=== PATIENT | female | born 1970 | race Caucasian/White ===

== ENCOUNTER 2022-05-22 12:59 | Emergency (ER) | payer SELFPAY ==
[2022-05-22 13:05] VITALS: TEMP 98.6
[2022-05-22 13:45] LABS: INR 1.5 (<1.2); Partial Thromboplastin Time 30.8 sec (22.0-30.0); Prothrombin Time 15.2 sec (9.0-12.0)
[2022-05-22 13:47] LABS: ALT 51 U/L (4-34); African American GFR (CKD) >90 (>60 ml/min/1.73 sqM); Anion Gap 6 mmol/L; Blood Urea Nitrogen 5 mg/dL (7-17); Calcium 7.5 mg/dL (8.4-10.2); Carbon Dioxide 25 mmol/L (22-30); Chloride 104 mmol/L (98-107); Glucose 141 mg/dL (74-99); Non-African American GFR(CKD) >90 (>60 ml/min/1.73 sqM); Sodium 135 mmol/L (137-145); Total Bilirubin 3.4 mg/dL (0.2-1.3)
[2022-05-22 13:54] LABS: Albumin 2.9 g/dL (3.5-5.0); Potassium 4.8 mmol/L (3.5-5.1); Total Protein 6.5 g/dL (6.3-8.2)
[2022-05-22 13:55] LABS: AST 114 U/L (14-36); Alkaline Phosphatase 357 U/L (38-126)
--- NOTE | 2022-05-22 14:32 | XR ---
EXAMINATION TYPE: XR chest 2V DATE OF EXAM: 05/22/2022 COMPARISON: NONE HISTORY: Shortness of breath and body swelling TECHNIQUE: Frontal and lateral views of the chest are obtained. FINDINGS: Central vascularity and interstitium are prominent. No evident pneumothorax or pleural eff usion. Heart is at the upper limit of normal for size, patient is rotated IMPRESSION: Findings may represent pulmonary venous hypertension and interstitial edema, interstitia l pneumonitis, follow-up is recommended
--- NOTE | 2022-05-22 15:16 | ED ---
General Adult HPI - General Chief complaint: Shortness of Breath Stated complaint: SOB,body swelling Time Seen by Provider: 05/22/22 15:15 Source: patient, RN notes reviewed, old records reviewed Mode of arrival: ambulatory Limitations: no limitations - History of Present Illness Initial comments: Patient is a 51-year-old female who presents emergency Department with past medical history remarkable for diabetes who does not see any healthcare provider s presents emergency Department with shortness of breath. States it has been a progressive process for multiple weeks. Has noticed worsening lower extremity edema, now has noticed also abdominal swelling. Has noticed difficulty with breathing with lying flat. Endorses orthopnea, occasional PND. Denies any chest pain, abdominal pain, nausea, vomiting. Denies any headaches. This is been a progressive process, has been worsening which is why she presents today for further evaluation. Denies any known history of cardiac disease in herself. Denies any history of stents. Denies any fevers but does endorse a nonproductive cough. Denies any fevers or chills. Presents for further evaluation at this time. I evaluated the patient when she is placed in the emergency department room. Patient does endorse worsening exertional shortness of breath over this period of time. - Related Data Previous Rx's Medication Instructions Recorded Furosemide [Lasix] 20 mg PO DAILY 20 Days #20 tablet 05/22/22 Allergies Allergy/AdvReac Type Severity Reaction Status Date / Time No Known Allergies Allergy Verified 05/22/22 17:16 Review of Systems ROS Statement: Those systems with pertinent positive or pertinent negative responses have been documented in the HPI. Review of Systems: CONST: Denies fever EYES: Denies blurry vision ENT: Denies nasal congestion C/V: Denies Chest pain RESP: Endorses shortness of breath GI: Denies abdominal pain : Denies dysuria SKIN: Denies rash. MSK: Denies joint pain. NEURO: Denies headache ROS Other: All systems not noted in ROS Statement are negative. Past Medical History Past Medical History: Diabetes Mellitus History of Any Multi-Drug Resistant Organisms: None Reported Past Surgical History: Orthopedic Surgery Past Psychological History: No Psychological Hx Reported Smoking Status: Former smoker Past Alcohol Use History: Occasional Past Drug Use History: None Reported General Exam - General Exam Comments Initial Comments: General: Appears in no acute distress. HEAD: Normal with no signs of head trauma. EYES: PERRLA, EOMI, conjunctiva normal, no discharge. ENT: Hearing grossly intact, normal oropharynx. RESPIRATORY: Clear breath sounds bilaterally. No wheezes, rales, or rhonchi. No respiratory distress. No hypoxia at rest. C/V: Regular rate and rhythm. S1 and S2 auscultated, patient has 2+ pitting edema in bilateral lower extremities that is symmetrical of the level of the knees., peripheral pulses 2+ and intact throughout ABD: Abd is soft, nontender, nondistended EXT: Normal range of motion, no obvious deformity SKIN: No rashes or lesions observed on exposed skin. NEURO: Alert and oriented 4. No focal deficits. Limitations: no limitations Course Vital Signs 05/22/22 05/22/22 05/22/22 13:01 15:40 17:29 Temperature 98.6 F Pulse Rate 87 66 Respiratory 16 22 18 Rate Blood Pressure 144/80 133/73 O2 Sat by Pulse 98 98 Oximetry Medical Decision Making - Medical Decision Making Based on the patient's presentation and physical exam, I'm concerned for cardiopulmonary etiology for her current symptoms. We will obtain cardiac labs, EKG, chest x-ray. Vital signs within acceptable limits. Patient was in agreement this planl. Concerns include congestive heart failure, dependent edema. EKG shows no signs of acute ischemia. Chest x-ray reveals pulmonary venous hypertension/interstitial edema. Laboratory studies are remarkable for an undetectable troponin.BNP is within normal limits for the patient's age. Labora tory studies are remarkable for a normal adjusted calcium. LFTs are slightly elevated. Bilirubin and alk phos are slightly elevated. Patient's has hypoalbuminemia. Coags are slightly elevated. Remainder the labs are unremarkable. I discussed results with the patient. Labs seem to represent cirrhosis at this time. I did recommend we obtain a CT abdomen and pelvis at this time. She was in agreement with this plan. CT revealed small livers suggestive of cirrhosis. Moderate abdominal ascitic fluid. Anasarca present. I discussed with her current symptoms are likely secondary to cirrhosis. This is a chronic process at this time. Patient has no primary care however spoke with social workers here to work on getting insurance as well as follow-up. I will provide her with a dose of Lasix prior to discharge as well as an oral prescription for Lasix. Recommend that she follow up with outpatient PCP in her we'll provide her with contact information for 1. She was in agreement this plan. Vital signs remained within acceptable limits. No hypoxia. Labs while remarkable for findings of cirrhosis are noncritical. She is feeling otherwise well. She was in agreement this plan. Strict return precautions were discussed.Patient does not abuse alcohol per her, but we did discuss ceasing all alcohol use. We discussed that symptoms are likely secondary to dependent edema accumulation from hypoalbuminemia from liver cirrhosis. Normal BMP suggests no CHF contribution. I will provide the patient with a prescription for Lasix. I instructed the patient to follow up with their PCP in the next 1-3 days. I provided contact information for follow up with PCP. I explained that the patient should return to the emergency department if they experience any worsening symptoms. Strict return precautions were discussed with the patient. The patient expressed understanding of these instructions. I answered all questions that the patient had. The patient was discharged home in good condition with their prescriptions and follow up information. - Lab Data Result diagrams: 05/22/22 14:03 05/22/22 13:14 Lab Results 05/22/22 05/22/22 05/22/22 Range/Units 13:14 13:14 13:14 WBC (3.8-10.6) k/uL RBC (3.80-5.40) m/uL Hgb (11.4-16.0) gm/dL Hct (34.0-46.0) % MCV (80.0-100.0) fL MCH (25.0-35.0) pg MCHC (31.0-37.0) g/dL RDW (11.5-15.5) % Plt Count (150-450) k/uL MPV Neutrophils % (Manual) % Lymphocytes % (Manual) % Monocytes % (Manual) % Eosinophils % (Manual) % Basophils % (Manual) % Neutrophils # (Manual) (1.3-7.7) k/uL Lymphocytes # (Manual) (1.0-4.8) k/uL Monocytes # (Manual) (0-1.0) k/uL Eosinophils # (Manual) (0-0.7) k/uL Basophils # (Manual) (0-0.2) k/uL Nucleated RBCs (0-0) /100 WBC Manual Slide Review Macrocytosis Target Cells PT 15.2 H (9.0-12.0) sec INR 1.5 H (<1.2) APTT 30.8 H (22.0-30.0) sec Sodium 135 L (137-145) mmol/L Potassium 4.8 (3.5-5.1) mmol/L Chloride 104 (98-107) mmol/L Carbon Dioxide 25 (22-30) mmol/L Anion Gap 6 mmol/L BUN 5 L (7-17) mg/dL Creatinine 0.37 L (0.52-1.04) mg/dL Est GFR (CKD-EPI)AfAm >90 (>60 ml/min/1.73 sqM) Est GFR (CKD-EPI)NonAf >90 (>60 ml/min/1.73 sqM) Glucose 141 H (74-99) mg/dL Plasma Lactic Acid Rubin (0.7-2.0) mmol/L Calcium 7.5 L (8.4-10.2) mg/dL Total Bilirubin 3.4 H (0.2-1.3) mg/dL AST 114 H (14-36) U/L ALT 51 H (4-34) U/L Alkaline Phosphatase 357 H (38-126) U/L Troponin I <0.012 (0.000-0.034) ng/mL NT-Pro-B Natriuret Pep pg/mL Total Protein 6.5 (6.3-8.2) g/dL Albumin 2.9 L (3.5-5.0) g/dL Amylase (30-110) U/L Lipase (23-300) U/L Urine Color Urine Appearance (Clear) Urine pH (5.0-8.0) Ur Specific [place] (1.001-1.035) Urine Protein (Negative) Urine Glucose (UA) (Negative) Urine Ketones (Negative) Urine Blood (Negative) Urine Nitrite (Negative) Urine Bilirubin (Negative) Urine Urobilinogen (<2.0) mg/dL Ur Leukocyte Esterase (Negative) 05/22/22 05/22/22 05/22/22 Range/Units 13:15 14:03 15:20 WBC 3.7 L (3.8-10.6) k/uL RBC 3.94 (3.80-5.40) m/uL Hgb 14.0 (11.4-16.0) gm/dL Hct 41.9 (34.0-46.0) % MCV 106.4 H (80.0-100.0) fL MCH 35.6 H (25.0-35.0) pg MCHC 33.5 (31.0-37.0) g/dL RDW 15.0 (11.5-15.5) % Plt Count 45 L (150-450) k/uL MPV 11.9 Neutrophils % (Manual) 50 % Lymphocytes % (Manual) 45 % Monocytes % (Manual) 2 % Eosinophils % (Manual) 2 % Basophils % (Manual) 1 % Neutrophils # (Manual) 1.85 (1.3-7.7) k/uL Lymphocytes # (Manual) 1.67 (1.0-4.8) k/uL Monocytes # (Manual) 0.07 (0-1.0) k/uL Eosinophils # (Manual) 0.07 (0-0.7) k/uL Basophils # (Manual) 0.04 (0-0.2) k/uL Nucleated RBCs 0 (0-0) /100 WBC Manual Slide Review Performed Macrocytosis Moderate Target Cells Present PT (9.0-12.0) sec INR (<1.2) APTT (22.0-30.0) sec Sodium (137-145) mmol/L Potassium (3.5-5.1) mmol/L Chloride (98-107) mmol/L Carbon Dioxide (22-30) mmol/L Anion Gap mmol/L BUN (7-17) mg/dL Creatinine (0.52-1.04) mg/dL Est GFR (CKD-EPI)AfAm (>60 ml/min/1.73 sqM) Est GFR (CKD-EPI)NonAf (>60 ml/min/1.73 sqM) Glucose (74-99) mg/dL Plasma Lactic Acid Rubin 1.6 (0.7-2.0) mmol/L Calcium (8.4-10.2) mg/dL Total Bilirubin (0.2-1.3) mg/dL AST (14-36) U/L ALT (4-34) U/L Alkaline Phosphatase (38-126) U/L Troponin I (0.000-0.034) ng/mL NT-Pro-B Natriuret Pep 115 pg/mL Total Protein (6.3-8.2) g/dL Albumin (3.5-5.0) g/dL Amylase (30-110) U/L Lipase (23-300) U/L Urine Color Urine Appearance (Clear) Urine pH (5.0-8.0) Ur Specific [place] (1.001-1.035) Urine Protein (Negative) Urine Glucose (UA) (Negative) Urine Ketones (Negative) Urine Blood (Negative) Urine Nitrite (Negative) Urine Bilirubin (Negative) Urine Urobilinogen (<2.0) mg/dL Ur Leukocyte Esterase (Negative) 05/22/22 05/22/22 Range/Units 15:39 16:22 WBC (3.8-10.6) k/uL RBC (3.80-5.40) m/uL Hgb (11.4-16.0) gm/dL Hct (34.0-46.0) % MCV (80.0-100.0) fL MCH (25.0-35.0) pg MCHC (31.0-37.0) g/dL RDW (11.5-15.5) % Plt Count (150-450) k/uL MPV Neutrophils % (Manual) % Lymphocytes % (Manual) % Monocytes % (Manual) % Eosinophils % (Manual) % Basophils % (Manual) % Neutrophils # (Manual) (1.3-7.7) k/uL Lymphocytes # (Manual) (1.0-4.8) k/uL Monocytes # (Manual) (0-1.0) k/uL Eosinophils # (Manual) (0-0.7) k/uL Basophils # (Manual) (0-0.2) k/uL Nucleated RBCs (0-0) /100 WBC Manual Slide Review Macrocytosis Target Cells PT (9.0-12.0) sec INR (<1.2) APTT (22.0-30.0) sec Sodium (137-145) mmol/L Potassium (3.5-5.1) mmol/L Chloride (98-107) mmol/L Carbon Dioxide (22-30) mmol/L Anion Gap mmol/L BUN (7-17) mg/dL Creatinine (0.52-1.04) mg/dL Est GFR (CKD-EPI)AfAm (>60 ml/min/1.73 sqM) Est GFR (CKD-EPI)NonAf (>60 ml/min/1.73 sqM) Glucose (74-99) mg/dL Plasma Lactic Acid Rubin (0.7-2.0) mmol/L Calcium (8.4-10.2) mg/dL Total Bilirubin (0.2-1.3) mg/dL AST (14-36) U/L ALT (4-34) U/L Alkaline Phosphatase (38-126) U/L Troponin I (0.000-0.034) ng/mL NT-Pro-B Natriuret Pep pg/mL Total Protein (6.3-8.2) g/dL Albumin (3.5-5.0) g/dL Amylase 64 (30-110) U/L Lipase 169 (23-300) U/L Urine Color Yellow Urine Appearance Clear (Clear) Urine pH 7.0 (5.0-8.0) Ur Specific [place] 1.018 (1.001-1.035) Urine Protein Negative (Negative) Urine Glucose (UA) Negative (Negative) Urine Ketones Negative (Negative) Urine Blood Negative (Negative) Urine Nitrite Negative (Negative) Urine Bilirubin Negative (Negative) Urine Urobilinogen 3.0 (<2.0) mg/dL Ur Leukocyte Esterase Negative (Negative) - EKG Data -: EKG Interpreted by Me EKG Comments: 12-lead Electrocardiogram Interpretation Note EKG was reviewed and interpreted by myself. 12-lead ECG performed at 1307 is interpreted by me as revealing normal sinus rhythm at a rate of 73 beats per minute. [place] is normal. CA interval is 119 ms, QRS duration is 92 ms, QTc is 447 ms. Isolated T-wave inversion in lead III.. There were no other ST or T wave abnormalities to suggest myocardial ischemia or injury. R wave progression across the precordium was satisfactory. By my interpretation this EKG is non-diagnostic for acute ischemia. No prior EKG for comparison. Disposition Clinical Impression: Dependent edema, Cirrhosis, Hypoalbuminemia Disposition: HOME SELF-CARE Condition: Good Instructions (If sedation given, give patient instructions): Cirrhosis (ED), Edema (ED) Prescriptions: Furosemide [Lasix] 20 mg PO DAILY 20 Days #20 tablet Is patient prescribed a controlled substance at d/c from ED?: No Referrals: None,Stated [Primary Care Provider] - 1-2 days Eliezer Ling [STAFF PHYSICIAN] - 1-2 days Time of Disposition: 17:20
[2022-05-22 15:33] LABS: HCT 41.9 % (34.0-46.0); MCH 35.6 pg (25.0-35.0); MCHC 33.5 g/dL (31.0-37.0); MCV 106.4 fL (80.0-100.0); Macrocytosis Moderate; Mean Platelet Volume 11.9; RBC 3.94 m/uL (3.80-5.40); WBC 3.7 k/uL (3.8-10.6)
[2022-05-22 15:34] LABS: Platelet Count 45 k/uL (150-450)
[2022-05-22 15:38] LABS: Basophils # (M) 0.04 k/uL (0-0.2); Eosinophils # (M) 0.07 k/uL (0-0.7); Lymphocytes # (M) 1.67 k/uL (1.0-4.8); Monocytes # (M) 0.07 k/uL (0-1.0); Neutrophils # (M) 1.85 k/uL (1.3-7.7); Neutrophils % (M) 50 %; Nucleated Red Blood Cells 0 /100 WBC (0-0); Total Cells Counted 100
[2022-05-22 15:39] LABS: Target Cells Present
[2022-05-22 16:18] LABS: Appearance,Urine Clear (Clear); Bilirubin,Urine Negative (Negative); Blood,Urine Negative (Negative); Color,Urine Yellow; Glucose,Urine (UA) Negative (Negative); Ketones,Urine Negative (Negative); Leukocyte Esterase,Urine Negative (Negative); Nitrite,Urine Negative (Negative); Protein,Urine Negative (Negative); Specific Gravity,Urine 1.018 (1.001-1.035)
[2022-05-22 16:31] LABS: Amylase 64 U/L (30-110); Lipase 169 U/L (23-300)
--- NOTE | 2022-05-22 17:05 | CT ---
EXAMINATION TYPE: CT abdomen pelvis w con DATE OF EXAM: 05/22/2022 COMPARISON: None HISTORY: abd pain CT DLP: 3093.9 mGycm Automated exposure control for dose reduction was used. CONTRAST: Performed with IV Contrast, patient injected with 100 mL of Isovue 300. Images obtained from the diaphragm to the floor the pelvis with the IV contrast. Lung bases are clear of consolidation. No pleural effusion. Heart size is normal. No pericardial effu yuliana. There is diffuse subcutaneous edema around the abdomen. Liver is somewhat small and could relate to c irrhosis. Liver measures 13 cm in length. There is abdominal ascites. Spleen measures 13.[address] omach is intact. No pancreatic mass. Gallbladder is dilated and measures 5.9 cm in diameter. There is no adrenal mass. Kidneys show satisfactory contrast opacification. No hydronephrosis. Bladde r distends smoothly. Uterus is anteverted. No pelvic mass. The lumbar vertebrae have normal alignment. No compression fracture. Posterior elements are intact. T he bony pelvis is intact. The hip joints are intact. Sacroiliac joints appear normal. There is T11-12 mild spur formation. There is no evidence of a bowel obstruction. No free air. No mesenteric edema. IMPRESSION: Small liver suggestive of cirrhosis. Moderate abdominal ascites fluid. Subcutaneous edema around the abdomen could relate to anasarca. Borderline splenomegaly.
[2022-05-22] MEDS ORDERED: FUROSEMIDE 10 MG/ML 4 ML VIAL IV STA (17:15)
[2022-05-22 17:29] VITALS: BP 133/73; PULSE 66; RESP 18
== END 2022-05-22 18:28 | disposition home or self-care (01) ==
LOC: EC 12:59
DX: R60.9 Edema, unspecified (principal); K74.60 Unspecified cirrhosis of liver; E88.09 Other disorders of plasma-protein metabolism, not elsewhere classified; E11.9 Type 2 diabetes mellitus without complications; Z87.891 Personal history of nicotine dependence
CPT/HCPCS: 36415; 93005; 83880; 80053; 82150; 83605; 83690; 84484; 85025; 85610; 85730; 81003; 71046; 74177; 99285; 96374; J1940

== ENCOUNTER 2022-07-02 11:09 | Emergency (ER) | payer BC ==
[2022-07-02 12:05] VITALS: RESP 16; TEMP 98
--- NOTE | 2022-07-02 12:25 | XR ---
EXAMINATION TYPE: XR chest 2V DATE OF EXAM: 07/02/2022 COMPARISON: 05/22/2022 HISTORY: sob cough TECHNIQUE: Frontal and lateral views of the chest are obtained. FINDINGS: Mild increased density right infrahilar region could reflect developing infiltrate. Correlate clinica lly and consider progress studies. No evidence for pneumothorax. No pleural effusion. The cardiac silhouette size is within normal limits. The osseous structures are grossly intact. IMPRESSION: 1. Mild increased density right infrahilar region could reflect developing infiltrate. Correlate cli nically and consider progress studies.
--- NOTE | 2022-07-02 12:28 | XR ---
EXAMINATION TYPE: XR KUB DATE OF EXAM: 07/02/2022 COMPARISON: NONE HISTORY: Pain TECHNIQUE: One view abdominal series FINDINGS: The osseous structures are intact. The bowel gas pattern is nonspecific. Lung bases are clear. IMPRESSION: 1. Nonspecific abdomen.
[2022-07-02 13:23] LABS: Appearance,Urine Turbid (Clear); Bilirubin,Urine Negative (Negative); Blood,Urine Trace (Negative); Color,Urine Yellow; Glucose,Urine (UA) Trace (Negative); INR 1.6 (<1.2); Ketones,Urine Trace (Negative); Leukocyte Esterase,Urine Large (Negative); Mucus,Urine Moderate /hpf; Nitrite,Urine Negative (Negative); PH, Urine 6.5 (5.0-8.0); Partial Thromboplastin Time 29.8 sec (22.0-30.0); Protein,Urine 1+ (Negative); Prothrombin Time 15.5 sec (9.0-12.0); RBC,Urine 21 /hpf (0-5); Specific Gravity,Urine 1.022 (1.001-1.035); Squamous Epithelial Cell,Urine 79 /hpf (0-4); WBC,Urine 36 /hpf (0-5)
[2022-07-02 13:24] LABS: ALT 53 U/L (4-34); AST 109 U/L (14-36); African American GFR (CKD) >90 (>60 ml/min/1.73 sqM); Albumin 2.7 g/dL (3.5-5.0); Alkaline Phosphatase 362 U/L (38-126); Amylase 56 U/L (30-110); Anion Gap 2 mmol/L; Blood Urea Nitrogen 4 mg/dL (7-17); Calcium 7.5 mg/dL (8.4-10.2); Carbon Dioxide 26 mmol/L (22-30); Chloride 108 mmol/L (98-107); Glucose 168 mg/dL (74-99); Lipase 186 U/L (23-300); Non-African American GFR(CKD) >90 (>60 ml/min/1.73 sqM); Sodium 136 mmol/L (137-145); Total Bilirubin 3.4 mg/dL (0.2-1.3); Total Protein 6.5 g/dL (6.3-8.2)
[2022-07-02 13:29] LABS: Basophils % (A) 1 %; Eosinophils # (A) 0.1 k/uL (0-0.7); Eosinophils % (A) 3 %; HCT 43.2 % (34.0-46.0); HGB 14.3 gm/dL (11.4-16.0); Lymphocytes % (A) 23 %; MCH 34.8 pg (25.0-35.0); MCV 105.4 fL (80.0-100.0); Macrocytosis Moderate; Mean Platelet Volume 11.3; Monocytes # (A) 0.5 k/uL (0-1.0); Monocytes % (A) 11 %; Neutrophils # (A) 2.5 k/uL (1.3-7.7); Neutrophils % (A) 59 %; RDW 15.4 % (11.5-15.5); WBC 4.3 k/uL (3.8-10.6)
[2022-07-02 13:42] LABS: Platelet Count 41 k/uL (150-450)
[2022-07-02] MEDS ORDERED: FUROSEMIDE 10 MG/ML 4 ML VIAL IV STA (14:53)
--- NOTE | 2022-07-02 16:18 | ED ---
General Adult HPI - General Chief complaint: Abdominal Pain Stated complaint: SOB Time Seen by Provider: 07/02/22 14:37 Source: patient, RN notes reviewed Mode of arrival: ambulatory Limitations: no limitations - History of Present Illness Initial comments: Patient is a 52-year-old female presenting to the emergency room at the direction of her coworkers for severe dyspnea while at work. She also reports that her spouse advised her that she had one episode of apnea during the night where she stopped breathing. She was able to easily arouse her and she tested improving again. She reports severe orthopnea last 24 hours. She is complaining of worsening lower extremity edema, shortness of breath secondary to abdominal pressure, abdominal pain and increase in abdominal size. On 05/22/2022 month ago blood work was completed along CT of the abdomen and pelvis completed during workup on 05/14/2022 report reviewed showing small liver suggestive of cirrhosis. Moderate abdominal ascites fluid. Subcutaneous edema around the abdomen along with borderline splenomegaly. She reports that her ascites has worsened since that time though she did complete the door course of Lasix that was prescribed on discharge which is 20 mg daily for the course of 10 days on flexion she was unable to establish with local GI or local primary care provider for further evaluation and treatment. She has a past medical history significant for diabetes. She denies any known hepatic failure previous to her most recent workup and denies any alcohol abuse or known hepatitis exposure. - Related Data Home Medications Medication Instructions Recorded Confirmed No Known Home Medications 07/02/22 07/02/22 Allergies Allergy/AdvReac Type Severity Reaction Status Date / Time No Known Allergies Allergy Verified 07/02/22 15:57 Review of Systems ROS Statement: Those systems with pertinent positive or pertinent negative responses have been documented in the HPI. ROS Other: All systems not noted in ROS Statement are negative. Past Medical History Past Medical History: Diabetes Mellitus, Liver Disease History of Any Multi-Drug Resistant Organisms: None Reported Past Surgical History: Orthopedic Surgery Past Psychological History: No Psychological Hx Reported Smoking Status: Former smoker Past Alcohol Use History: Occasional Past Drug Use History: None Reported General Exam Limitations: no limitations General appearance: alert, in no apparent distress Head exam: Present: atraumatic, normocephalic, normal inspection Eye exam: Present: normal appearance, PERRL, EOMI. Absent: scleral icterus, conjunctival injection, periorbital swelling ENT exam: Present: normal exam, mucous membranes moist Neck exam: Present: normal inspection, full ROM Respiratory exam: Present: decreased breath sounds (Bibasilar). Absent: respiratory distress, wheezes, rales, rhonchi, stridor Cardiovascular Exam: Present: regular rate, normal rhythm, normal heart sounds. Absent: systolic murmur, diastolic murmur, rubs, gallop, clicks GI/Abdominal exam: Present: distended, tenderness, normal bowel sounds Rectal exam: Present: deferred Extremities exam: Present: pedal edema (Bilateral lower extremity +2-3) Back exam: Present: normal inspection Neurological exam: Present: alert, oriented X3, CN II-XII intact Psychiatric exam: Present: normal affect, normal mood Skin exam: Present: warm, dry, intact, normal color. Absent: rash Course Vital Signs 07/02/22 07/02/22 12:01 19:19 Temperature 98 F Pulse Rate 81 65 Respiratory 16 16 Rate Blood Pressure 176/82 146/49 O2 Sat by Pulse 98 100 Oximetry Medical Decision Making - Medical Decision Making 52-year-old female presenting to the emergency room with worsening ascites and shortness of breath along with an episode of apnea last night secondary to orthopnea and abdominal pressure. Workup approximately one month ago blood work completed by triage and essentially unchanged. CT of the abdomen and pelvis completed during workup on 05/14/2022 report reviewed showing small liver suggestive of cirrhosis. Moderate abdominal ascites fluid. Subcutaneous edema around the abdomen along with borderline splenomegaly. KUB and chest x-ray ordered while patient was triaged. KUB image intervertebral me showing nonspecific bowel gas pattern with clear lung bases. Chest x-ray image interpreted by me shows increased density right infrahilar area possible developing infiltrate. High risk for increased pulmonary edema secondary to volume overload from hepatic failure. No indication for further diagnostic imaging at this time. Will add acute hepatitis panel to blood work and give 40 mg of IV Lasix. Due to worsening of volume overload symptoms with lack of availability of GI in the region along with inability to follow up with primary care provider locally recommend transf er to another facility for further evaluation of treatment of ascites and sudden onset of hepatic failure approximately 2 months ago. Patient diuresed well with IV Lasix. Improvement and shortness of breath slightly but dyspnea persist along with abdominal pain. Attempted to transfer patient to [facility], no availability for transfer. Spoke with Dr. Kurt Toth [place] who is accepting of ER To ER transfer for further evaluation and treatment by medicine and GI services. Discussed plan with patient and family at bedside. Will arrange transfer via ambulance to follow-up [place].. Case discussed with Dr. Mercado. - Lab Data Result diagrams: 07/02/22 12:30 07/02/22 12:30 Lab Results 07/02/22 07/02/22 07/02/22 Range/Units 12:30 12:30 12:30 WBC 4.3 (3.8-10.6) k/uL RBC 4.10 (3.80-5.40) m/uL Hgb 14.3 (11.4-16.0) gm/dL Hct 43.2 (34.0-46.0) % MCV 105.4 H (80.0-100.0) fL MCH 34.8 (25.0-35.0) pg MCHC 33.0 (31.0-37.0) g/dL RDW 15.4 (11.5-15.5) % Plt Count 41 L (150-450) k/uL MPV 11.3 Neutrophils % 59 % Lymphocytes % 23 % Monocytes % 11 % Eosinophils % 3 % Basophils % 1 % Neutrophils # 2.5 (1.3-7.7) k/uL Lymphocytes # 1.0 (1.0-4.8) k/uL Monocytes # 0.5 (0-1.0) k/uL Eosinophils # 0.1 (0-0.7) k/uL Basophils # 0.0 (0-0.2) k/uL Macrocytosis Moderate PT 15.5 H (9.0-12.0) sec INR 1.6 H (<1.2) APTT 29.8 (22.0-30.0) sec Sodium (137-145) mmol/L Potassium (3.5-5.1) mmol/L Chloride (98-107) mmol/L Carbon Dioxide (22-30) mmol/L Anion Gap mmol/L BUN (7-17) mg/dL Creatinine (0.52-1.04) mg/dL Est GFR (CKD-EPI)AfAm (>60 ml/min/1.73 sqM) Est GFR (CKD-EPI)NonAf (>60 ml/min/1.73 sqM) Glucose (74-99) mg/dL Calcium (8.4-10.2) mg/dL Total Bilirubin (0.2-1.3) mg/dL AST (14-36) U/L ALT (4-34) U/L Alkaline Phosphatase (38-126) U/L Troponin I (0.000-0.034) ng/mL NT-Pro-B Natriuret Pep pg/mL Total Protein (6.3-8.2) g/dL Albumin (3.5-5.0) g/dL Amylase (30-110) U/L Lipase (23-300) U/L Urine Color Yellow Urine Appearance Turbid H (Clear) Urine pH 6.5 (5.0-8.0) Ur Specific Pruden 1.022 (1.001-1.035) Urine Protein 1+ H (Negative) Urine Glucose (UA) Trace H (Negative) Urine Ketones Trace H (Negative) Urine Blood Trace H (Negative) Urine Nitrite Negative (Negative) Urine Bilirubin Negative (Negative) Urine Urobilinogen 4.0 (<2.0) mg/dL Ur Leukocyte Esterase Large H (Negative) Urine RBC 21 H (0-5) /hpf Urine WBC 36 H (0-5) /hpf Ur Squamous Epith Cells 79 H (0-4) /hpf Urine Mucus Moderate H (None) /hpf Urine HCG, Qual (Not Detectd) 07/02/22 07/02/22 07/02/22 Range/Units 12:30 12:30 12:30 WBC (3.8-10.6) k/uL RBC (3.80-5.40) m/uL Hgb (11.4-16.0) gm/dL Hct (34.0-46.0) % MCV (80.0-100.0) fL MCH (25.0-35.0) pg MCHC (31.0-37.0) g/dL RDW (11.5-15.5) % Plt Count (150-450) k/uL MPV Neutrophils % % Lymphocytes % % Monocytes % % Eosinophils % % Basophils % % Neutrophils # (1.3-7.7) k/uL Lymphocytes # (1.0-4.8) k/uL Monocytes # (0-1.0) k/uL Eosinophils # (0-0.7) k/uL Basophils # (0-0.2) k/uL Macrocytosis PT (9.0-12.0) sec INR (<1.2) APTT (22.0-30.0) sec Sodium 136 L (137-145) mmol/L Potassium 4.0 (3.5-5.1) mmol/L Chloride 108 H (98-107) mmol/L Carbon Dioxide 26 (22-30) mmol/L Anion Gap 2 mmol/L BUN 4 L (7-17) mg/dL Creatinine 0.42 L (0.52-1.04) mg/dL Est GFR (CKD-EPI)AfAm >90 (>60 ml/min/1.73 sqM) Est GFR (CKD-EPI)NonAf >90 (>60 ml/min/1.73 sqM) Glucose 168 H (74-99) mg/dL Calcium 7.5 L (8.4-10.2) mg/dL Total Bilirubin 3.4 H (0.2-1.3) mg/dL AST 109 H (14-36) U/L ALT 53 H (4-34) U/L Alkaline Phosphatase 362 H (38-126) U/L Troponin I 0.016 (0.000-0.034) ng/mL NT-Pro-B Natriuret Pep pg/mL Total Protein 6.5 (6.3-8.2) g/dL Albumin 2.7 L (3.5-5.0) g/dL Amylase 56 (30-110) U/L Lipase 186 (23-300) U/L Urine Color Urine Appearance (Clear) Urine pH (5.0-8.0) Ur Specific Pruden (1.001-1.035) Urine Protein (Negative) Urine Glucose (UA) (Negative) Urine Ketones (Negative) Urine Blood (Negative) Urine Nitrite (Negative) Urine Bilirubin (Negative) Urine Urobilinogen (<2.0) mg/dL Ur Leukocyte Esterase (Negative) Urine RBC (0-5) /hpf Urine WBC (0-5) /hpf Ur Squamous Epith Cells (0-4) /hpf Urine Mucus (None) /hpf Urine HCG, Qual Not Detected (Not Detectd) 07/02/22 Range/Units 12:30 WBC (3.8-10.6) k/uL RBC (3.80-5.40) m/uL Hgb (11.4-16.0) gm/dL Hct (34.0-46.0) % MCV (80.0-100.0) fL MCH (25.0-35.0) pg MCHC (31.0-37.0) g/dL RDW (11.5-15.5) % Plt Count (150-450) k/uL MPV Neutrophils % % Lymphocytes % % Monocytes % % Eosinophils % % Basophils % % Neutrophils # (1.3-7.7) k/uL Lymphocytes # (1.0-4.8) k/uL Monocytes # (0-1.0) k/uL Eosinophils # (0-0.7) k/uL Basophils # (0-0.2) k/uL Macrocytosis PT (9.0-12.0) sec INR (<1.2) APTT (22.0-30.0) sec Sodium (137-145) mmol/L Potassium (3.5-5.1) mmol/L Chloride (98-107) mmol/L Carbon Dioxide (22-30) mmol/L Anion Gap mmol/L BUN (7-17) mg/dL Creatinine (0.52-1.04) mg/dL Est GFR (CKD-EPI)AfAm (>60 ml/min/1.73 sqM) Est GFR (CKD-EPI)NonAf (>60 ml/min/1.73 sqM) Glucose (74-99) mg/dL Calcium (8.4-10.2) mg/dL Total Bilirubin (0.2-1.3) mg/dL AST (14-36) U/L ALT (4-34) U/L Alkaline Phosphatase (38-126) U/L Troponin I (0.000-0.034) ng/mL NT-Pro-B Natriuret Pep 101 pg/mL Total Protein (6.3-8.2) g/dL Albumin (3.5-5.0) g/dL Amylase (30-110) U/L Lipase (23-300) U/L Urine Color Urine Appearance (Clear) Urine pH (5.0-8.0) Ur Specific Pruden (1.001-1.035) Urine Protein (Negative) Urine Glucose (UA) (Negative) Urine Ketones (Negative) Urine Blood (Negative) Urine Nitrite (Negative) Urine Bilirubin (Negative) Urine Urobilinogen (<2.0) mg/dL Ur Leukocyte Esterase (Negative) Urine RBC (0-5) /hpf Urine WBC (0-5) /hpf Ur Squamous Epith Cells (0-4) /hpf Urine Mucus (None) /hpf Urine HCG, Qual (Not Detectd) - Radiology Data Radiology results: report reviewed, image reviewed Disposition Clinical Impression: Ascites Disposition: OTHER INSTITUTION NOT DEFINED Condition: Stable Is patient prescribed a controlled substance at d/c from ED?: No Referrals: Lydia Mercado DO [Primary Care Provider] - 1-2 days Time of Disposition: 19:34 - Out of Hospital Transfer - Req. Specs Out of Hospital Transfer - Requested Specifics: Other Emergency Center (Transfer to [facility] emergency room via EMS excepting provider Dr. Hicks)
[2022-07-02 19:20] VITALS: BP 146/49; PULSE 65
[2022-07-02 23:59] LABS: Hepatitis A Antibody IgM Nonreactive (Nonreactive); Hepatitis B Core IgM Nonreactive (Nonreactive); Hepatitis B Surface Antigen Nonreactive (Nonreactive); Hepatitis C IgG Antibody Nonreactive (Nonreactive)
== END 2022-07-02 20:02 | disposition other institution (70) ==
LOC: EC 11:09
DX: R18.8 Other ascites (principal); E11.9 Type 2 diabetes mellitus without complications; Z87.891 Personal history of nicotine dependence
CPT/HCPCS: 36415; 93005; 83880; 80053; 80074; 82150; 83690; 84484; 85025; 85610; 85730; 81001; 81025; 87086; 71046; 74018; 99285; 96374; J1940

== ENCOUNTER 2022-09-29 12:17 | Day surgery (SDC) | payer BC ==
[2022-09-29] MEDS ORDERED: ALBUMIN HUMAN 25% 50 ML in EMPTY BAG 1 BAG IVPB SCH (12:30)
[2022-09-29 13:01] VITALS: BP 96/64; PULSE 41; RESP 22; TEMP 94.2
[2022-09-29 13:23] LABS: Platelet Count 80 k/uL (150-450)
[2022-09-29 13:42] LABS: INR 1.8 (<1.2); Prothrombin Time 17.9 sec (9.0-12.0)
--- NOTE | 2022-09-29 14:55 | US ---
Ultrasound-guided paracentesis. DATE OF EXAM: 09/29/2022 CLINICAL HISTORY: Ascites The patient presented to the Department of radiology with a low heart rate, abnormal temperature and complaining of shortness of breath with chest tightness. Patient was immediately sent to the emergenc y room for evaluation the procedure was deferred. IMPRESSION: Deferred paracentesis..
== END 2022-09-29 13:08 ==
LOC: RADPROMAIN 12:17
PROVIDERS: ATTEND Internal Medicine
DX: R18.8 Other ascites (principal); Z53.9 Procedure and treatment not carried out, unspecified reason
CPT/HCPCS: 36415; 76705; 82565; 82947; 85049; 85610

== ENCOUNTER → 2022-10-22 | Outpatient (CLI) | payer BC ==
[2022-10-22 11:27] LABS: African American GFR (CKD) 117.1 (60.0-200.0); Albumin 3.5 g/dL (3.8-4.9); Anion Gap 7.7 mmol/L (10.00-18.00); BUN/Creat Ratio 14.71 Ratio (12.00-20.00); Blood Urea Nitrogen 10.3 mg/dL (9.0-27.0); Carbon Dioxide 27.3 mmol/L (20.0-27.5); Globulin 3.5 g/dL (1.6-3.3); Potassium 3.8 mmol/L (3.5-5.5); Total Bilirubin 5.6 mg/dL (0.30-1.20)
[2022-10-22 12:21] LABS: INR 1.45 (0.90-1.11); Prothrombin Time 16.1 sec (9.9-11.9)
[2022-10-22 12:34] LABS: HCT 29.9 % (37.2-46.3); HGB 10.2 g/dL (12.0-15.0); MCH 37.4 pg (27.0-32.0); MCHC 34.1 g/dL (32.0-37.0); MCV 109.5 fL (80.0-97.0); Mean Platelet Volume 11.3 fL (9.5-12.2); NRBC Per 100 WBC 0 /100 WBCS (0.0-0.0); Platelet Count 61 X 10*3/uL (140-440); RBC 2.73 X 10*6/uL (4.10-5.20); RDW 19.9 % (11.5-14.5); WBC 3.86 X 10*3/uL (4.50-10.00)
[2022-10-22 13:46] LABS: Basophils # (A) 0.07 X 10*3/uL (0.00-0.10); Basophils % (A) 1.8 %; Eosinophils # (A) 0.24 X 10*3/uL (0.04-0.35); Eosinophils % (A) 6.2 %; Immature Grans, Automated 0.5 %; Immature Platelet Fraction 6.5 % (1.1-6.1); Lymphocytes # (A) 1.04 X 10*3/uL (0.90-5.00); Lymphocytes % (A) 26.9 %; Macrocytosis (M) 3+; Monocytes # (A) 0.59 X 10*3/uL (0.20-1.00); Monocytes % (A) 15.3 %; Neutrophils % (A) 49.3 %; Target Cells 3+
== END | disposition home or self-care (01) ==
LOC: LABWHC1 07:29
PROVIDERS: ATTEND Internal Medicine
DX: K75.81 Nonalcoholic steatohepatitis (NASH) (principal); K74.60 Unspecified cirrhosis of liver
CPT/HCPCS: 36415; 80053; 85025; 85610

== ENCOUNTER → 2022-10-30 | Outpatient (CLI) | payer BC ==
[2022-10-31 04:03] LABS: Urine Alcohol Negative (Negative); Urine Barbiturate Negative (Negative); Urine Cocaine Negative (Negative); Urine Methadone Negative (Negative); Urine Opiates Negative (Negative); Urine Phencyclidine Negative (Negative)
== END | disposition home or self-care (01) ==
LOC: LABWHC1 14:23
PROVIDERS: ATTEND Internal Medicine
DX: K75.81 Nonalcoholic steatohepatitis (NASH) (principal); K74.60 Unspecified cirrhosis of liver; Z76.82 Awaiting organ transplant status
CPT/HCPCS: 80306